=== PATIENT | male | born 1970 | race Caucasian/White ===

== ENCOUNTER 2019-02-28 12:59 | Day surgery (SDC) | payer OTHER, SELFPAY ==
--- NOTE | 2019-02-28 | PATH_ITS ---
[facility] Accession Number: [id number] . 01 Material submitted: . PART A: small bowel - SMALL BOWEL BIOPSIES PART B: gastrointestinal site - GASTRIC BIOPSIES . 01 Clinical history: . B. FOR H. PYLORI . 02 Diagnosis: A. Small Bowel Biopsies: Duodenal mucosa with no diagnostic abnormality. Negative for active inflammation, features of sprue, dysplasia, or malignancy. . B. Stomach, Biopsies: Antral and body-type mucosa with no diagnostic abnormality. Negative for Helicobacter organisms by immunohistochemistry. Negative for intestinal metaplasia. Negative for dysplasia and malignancy. MRV 03/02/2019 1430 Local . 02 Electronically signed: . Pao Kline MD, Pathologist NPI- [id number] . 01 Gross description: . Part A: SMALL BOWEL BIOPSIES: Received in formalin are 3 fragment(s) of curtis, soft tissue measuring 0.1 x 0.1 x 0.1 cm to 0.3 x 0.2 x 0.2 cm submitted entirely in 1 cassette(s) Part B: GASTRIC BIOPSIES : Received in formalin are 3 fragment(s) of curtis, soft tissue measuring 0.1 x 0.1 x 0.1 cm to 0.2 x 0.2 x 0.2 cm submitted entirely in 1 cassette(s) /[facility] [place] 02/28/2019 2026 Local . 02 Microscopic: . B. An immunohistochemical stain was performed to evaluate for Helicobacter organisms and is negative. The control stain showed appropriate reactivity. . * This test was developed and its performance characteristics determined by [employer]. It has not been cleared or approved by the U.S. Food and Drug Administration. The FDA has determined that such clearance or approval is not necessary. This test is used for clinical purposes. It should not be regarded as investigational or for research. . 02 Pathologist provided ICD-10: R19.7 . 02 CPT . 534657, 390736, [id number] Performed at: 01 [facility] [address] [id number] MD Javier Whitman MD Phone: [phone] Performed at: [id number] [place], [place] [id number] MD Pao Kline MD Phone: [phone]
--- NOTE | 2019-02-28 08:45 | PM.HP.1 ---
History of Present Illness History of Present Illness Date Patient Seen: 02/28/19 Chief complaint: [id number] Narrative: 48-year-old male with multiple GI complaints seen at our office on 12/14/2018. Please refer to that note for further details. He has history of a possible abnormal celiac test c/o PCP. He is here for an upper endoscopy with small-bowel biopsies for evaluation. The patient states that he has been almost strictly gluten free for the past 3 weeks Exam Narrative Exam Narrative: General: Patient is overweight, not in apparent distress Cardiovascular: Regular rate and rhythm, no murmurs, rubs, or gallops; no evidence of edema; no palpable abdominal aortic aneurysm Gastrointestinal: Normoactive bowel sounds, soft, nontender, nondistended, no rebound tenderness, no hepatosplenomegaly, no evidence of hernia Assessment & Plan Assessment & Plan narrative: 48-year-old male with possible abnormal celiac test in the past here for endoscopy and small bowel biopsies. Regarding the procedure(s), the risks and potential complications, benefits, and alternatives (including not doing the procedure) were discussed with the patient. The risks include but are not limited to bleeding, splenic injury, infection, perforation which may require surgical intervention, missed lesions, and adverse reactions to sedative medicines. After a question and answer period, the patient agreed to proceed with the procedure(s) and gives informed consent.
[2019-02-28 13:20] VITALS: BP 137/89; PULSE 69; RESP 16; TEMP 37.2; O2SAT 98; BMI 27.8
--- NOTE | 2019-02-28 14:31 | PM.OP.ENDO ---
Operative Date/Time/Diagnoses Date of procedure: 02/28/19 Procedure Notes Procedure in detail: Surgeon: Ney Amezquita MD Procedure: Esophagogastroduodenoscopy with biopsies Preoperative diagnosis: Generalized abdominal pain, diarrhea, rule out celiac disease Postoperative diagnosis: Esophageal inlet patch, otherwise normal EGD; status post small bowel biopsies Medications: Monitored anesthesia care due to history of anxiety as well as difficulties during prior conscious sedation Preanesthesia Assessment An H and P was performed/updated and the Px?s ASA class is 1. The procedure was discussed in detail with the patient. The potential risks and complications including infection, bleeding, missed lesions, perforation, need for surgery in case of perforation, prolonged hospital stay, and were explained. A brief question and answer period was allotted and once all questions were answered, informed consent was obtained. The patient was brought back to the procedure room and placed on standard monitoring. The patient?s vital signs were monitored continuously throughout the entire procedure. Prior to starting, a timeout was performed to confirm the patient?s identity, allergies, medications, and procedure. Procedure in detail The patient was placed in left lateral decubitus position and a bite block was inserted. The tip of the upper endoscope was placed into the mouth and advanced without difficulty under direct visualization into the esophagus. Esophagus: A small inlet patch was seen at 18 cm from the incisors. The esophagus otherwise had no abnormality Stomach: The gastric mucosa appeared normal with no evidence of peptic ulcer disease. Biopsies were taken from the body and antrum to rule out H pylori Duodenum: The visualized duodenal mucosa appeared normal with no evidence of gross scalloping. Biopsies were performed to rule out celiac disease The patient tolerated the procedure well and will be brought back to the recovery area to be discharged once criteria are met. Complications There were no complications and estimated blood loss was minimal. Recommendations: Resume previous diet Continue outPx medications Follow up pathology results Office follow up with Dr Vargas at the next available appointment An emergency contact number was given to the patient for any complications related to the procedure
[2019-02-28 14:59] VITALS: BP 120/84; PULSE 65; RESP 11; O2SAT 96
[2019-02-28 15:04] VITALS: BP 119/80; PULSE 69; RESP 8; O2SAT 97
[2019-02-28 15:09] VITALS: BP 104/72; PULSE 67; RESP 17; O2SAT 93
[2019-02-28 15:24] VITALS: BP 123/73; PULSE 71; RESP 12; O2SAT 96
[2019-02-28 15:35] VITALS: BP 129/81; PULSE 58; RESP 15; TEMP 36.1; O2SAT 97
== END 2019-02-28 15:48 | disposition home or self-care (01) ==
PROVIDERS: Visit Provider Internal Medicine Gastroenterology
PROC: 0DJ08ZZ Inspection of Upper Intestinal Tract, Via Natural or Artificial Opening Endoscopic (ICD-10-PCS; CPT 43235; principal; 2019-02-28 14:30)
DX: R19.7 Diarrhea, unspecified (principal); R10.84 Generalized abdominal pain; E11.9 Type 2 diabetes mellitus without complications; I10 Essential (primary) hypertension; K21.9 Gastro-esophageal reflux disease without esophagitis
CPT/HCPCS: 43239; J3010